=== PATIENT | female | born 1960 | race African-American/Black ===

== ENCOUNTER 2019-09-12 20:39 | Emergency (ER) | payer MEDICAID, SELFPAY ==
--- NOTE | ~2019-09-12 | XR_ITS ---
EXAMINATION: XR chest 1V portable 09/12/2019 21:49 INDICATION: Back pain and chest pain PROCEDURE: AP portable chest COMPARISON: No prior studies for comparison. FINDINGS: The lungs are clear. The cardiomediastinal silhouette is within normal limits. There are no pleural effusions. There is no pneumothorax suspected. IMPRESSION: 1: NO ACUTE CARDIOPULMONARY DISEASE. Reviewed, dictated and finalized at location A.
[2019-09-12 20:40] VITALS: BP 129/82; PULSE 78; RESP 18; TEMP 36; O2SAT 99
--- NOTE | 2019-09-12 20:50 | ECG_ITS ---
Measurements Intervals [place] Rate: 70 P: 69 MA: 147 QRS: 73 QRSD: 91 T: 29 QT: 387 QTc: 420 Interpretive Statements SINUS RHYTHM NORMAL ECG Electronically Signed On 09-13-2019 7:28:55 CDT by Alvin Culver D.O.
--- NOTE | 2019-09-12 20:51 | ED.GENADULT ---
HPI - General Adult General Chief complaint: Unspecified Stated complaint: pain everywhere Time Seen by Provider: 09/12/19 20:44 Source: RN notes reviewed History of Present Illness HPI narrative: Patient presents emergency department from home for generalized pain. Patient states for the past week she has been having soreness in her bilateral upper back and shoulders as well as in her bilateral thighs and hips. Patient states that she has had no known trauma or injury she denies any fevers or chills chest pain shortness of breath abdominal pain nausea vomiting or any other symptoms she denies any numbness or tingling in the extremities or bowel or bladder incontinence patient states she has been taking aspirin for the pain with minimal relief. She states she is had no previous work-up denies any other symptoms at this time Related Data Allergies Allergy/AdvReac Type Severity Reaction Status Date / Time haloperidol [From Haldol] AdvReac Dizziness Verified 09/12/19 21:05 Review of Systems Review of Systems: Narrative: Gen.: Denies fevers or chills Eyes: Denies eye pain or visual change ENT: Denies congestion Respiratory: Denies shortness of breath or cough CV: Denies chest pain or palpitations GI: Denies abdominal pain nausea, emesis or diarrhea denies burning, urgency, frequency or hematuria Musculoskeletal: See HPI Neuro: Denies numbness, tingling, weakness or focal weakness Skin: Denies rash Except as documented, all other systems reviewed and negative [facility] Past Medical History Medical History (Updated 09/12/19 @ 22:47 by Raul Lazo DO) Patient denies significant medical history Social History Social History (Updated 09/12/19 @ 20:52 by Raul Lazo DO) Smoking status: Never smoker Exam Narrative: Exam Narrative: APPEARANCE: No acute distress, nontoxic, resting in bed EYES: EOMI HEENT: Normocephalic, atraumatic, OMM Neck: Supple, no midline tenderness palpation full range of motion without pain mild tenderness palpation of bilateral trapezius muscle RESPIRATORY: No respiratory distress Clear to auscultation bilaterally with no rhonchi wheezing or rales. CARDIOVASCULAR: Regular rate and rhythm without murmurs rubs or gallops., Bilateral radial pulse 2+ ABDOMINAL: Soft, nontender, nondistended, no rebound or guarding MUSCULOSKELETAl: Moves all extremities. No clubbing, cyanosis or edema. no tenderness of the bilateral upper or lower extremities full range of motion of all joints without pain NEURO: Awake and alert x 3. Following commands, speech normal, no focal deficits. Muscle strength 5 out of 5 bilateral upper and lower extremities SKIN:: Warm, dry. No rashes lesions or abrasions PSYCHIATRIC: Normal affect/mood, Course Course Emergency Course: Patient states that symptoms are resolved following [place] states she is ready for discharge Discussed with patient results of workup and diagnosis. Discussed need for follow-up with primary care, proper use of medication, and reasons to return to the emergency department. Patient understands and agrees to current treatment plan Vital Signs Vital signs: Vital Signs Temperature 96.8 F L 09/12/19 20:40 Pulse Rate 78 09/12/19 20:40 Respiratory Rate 18 09/12/19 20:40 Blood Pressure 129/82 09/12/19 20:40 Pulse Oximetry 99 09/12/19 20:40 Temperature 96.8 F L 09/12/19 20:40 Pulse Rate 68 09/12/19 22:44 Respiratory Rate 20 09/12/19 22:44 Blood Pressure 122/83 09/12/19 22:44 Pulse Oximetry 98 09/12/19 22:44 Medical Decision Making MDM Narrative Medical decision making narrative: Patient presents for joint pain in the bilateral shoulders into the neck as well as in the bilateral hips. Patient with EKG shows normal ST segments with normal troponin creatinine kinase was within normal limits no elevation of CRP or sed rate to suggest polymyalgia rheumatica. This time I feels patient may be discharged with muscle relaxers and an
[2019-09-12 21:02] VITALS: PULSE 74
[2019-09-12 21:04] VITALS: BP 124/77; PULSE 78; RESP 20; O2SAT 100
[2019-09-12 21:12] LABS: Basophils Absolute Auto 0.1 K/mm3 (0.0-0.1); Basophils Percent Auto 0.7 % (0.2-1.2); Eosinophils Absolute Auto 0.1 K/mm3 (0-0.3); Eosinophils Percent Auto 1.5 % (0-4.4); Hematocrit 36.3 % (37.0-47.0); Hemoglobin 11.3 g/dL (12.0-15.0); Immature Granulocyte Absolute 0.01 K/mm3 (0.00-0.031); Immature Granulocyte Percent A 0.1 % (0-0.5); Lymphocytes Absolute Auto 3.42 K/mm3 (0.9-3.2); Lymphocytes Percent Auto 50.9 % (18.3-44.2); Mean Corpuscular HGB Conc 31.1 g/dl (32-36); Mean Corpuscular Hemoglobin 29.4 pg (26-34); Mean Corpuscular Volume 94.3 fl (80-100); Mean Platelet Volume 11.4 fl (7.4-10.4); Monocytes Absolute Auto 0.7 K/mm3 (0.1-0.6); Neutrophils Absolute Auto 2.5 K/mm3 (1.3-6.7); Neutrophils Percent Auto 36.8 % (45.5-73.1); Platelet Count Result 197 k/mm3 (150-375); Red Blood Count 3.85 M/mm3 (4.2-5.4); Red Cell Distribution Width 13.7 % (11.5-14.5); White Blood Count 6.7 K/mm3 (4.5-10.0)
[2019-09-12 21:46] LABS: Erythrocyte Sedimentation Rate 16 mm/hr (0-20)
[2019-09-12 21:55] LABS: Alanine Aminotransferase 22 U/L (4-35); Albumin Level 4.4 g/dL (3.5-5.1); Alkaline Phosphatase 89 U/L (38-126); Aspartate Amino Transferase 35 U/L (14-36); Bilirubin,Total 0.2 mg/dL (0.2-1.3); Blood Urea Nitrogen 18 mg/dL (7-17); CRP < 0.5 mg/dL (<1.0); Calcium 9.7 mg/dL (8.4-10.2); Carbon Dioxide 27 mmol/L (22-30); Chloride 108 mmol/L (98-107); Creatine Kinase 137 U/L (30-135); Estimated Glomerular Filt Rate > 60; Glucose 101 mg/dL (65-105); Sodium 140 mmol/L (137-145)
[2019-09-12 22:04] LABS: Troponin I < 0.012 ng/mL (0.000-0.034)
[2019-09-12 22:07] VITALS: BP 141/92; PULSE 74; RESP 20; O2SAT 100
[2019-09-12 22:44] VITALS: BP 122/83; PULSE 68; RESP 20; O2SAT 98
[2019-09-12 23:00] VITALS: BP 135/86; PULSE 60; RESP 20; O2SAT 100
== END 2019-09-12 23:07 | disposition home or self-care (01) ==
PROVIDERS: Emergency Provider Emergency Medicine
DX: M62.830 Muscle spasm of back (principal)
CPT/HCPCS: 36415; 71045; 80053; 82550; 84484; 85025; 85652; 86140; 93005; 99284; A9270